=== PATIENT | male | born 1975 ===

== ENCOUNTER 2019-03-16 07:31 | Day surgery (SDC) | payer OTHER ==
[2019-03-16] VITALS (8 sets, daily range): BP systolic 109–127; BP diastolic 66–77
[~2019-03-16] VITALS: Ht 165.1 cm; Wt 115.2 kg
[~2019-03-16 07:31] MED LIST: IBUP-1984 PO; ceFAZolin 2gm in dextrose, iso 100 ML IV ONE; famotidine 20mg tablet PO ONE; ringers solution, lacted 1,000 ML IV SCH
[2019-03-16 08:31] LABS: BASOPHILS # (AUTO) 0.1 X10'3 (0-0.2); BASOPHILS % (AUTO) 0.9 % (0-1); EOSINOPHILS # (AUTO) 0.1 X10'3 (0-0.9); EOSINOPHILS % (AUTO) 1.8 % (0-6); LYMPHOCYTES # (AUTO) 2.3 X10'3 (1.1-4.8); LYMPHOCYTES % (AUTO) 38.9 % (21-51); MEAN CORPUSCULAR HEMOGLOBIN 30.9 PG (27.0-31.0); MEAN CORPUSCULAR HGB CONC 34.3 g/dL (33.0-36.5); MEAN CORPUSCULAR VOLUME 90.3 FL (78-98); MEAN PLATELET VOLUME 8.5 FL (7.4-10.4); MONOCYTES # (AUTO) 0.4 X10'3 (0-0.9); NEUTROPHILS # (AUTO) 3.1 X10'3 (1.8-7.7); NEUTROPHILS % (AUTO) 51.4 % (42-75); PRE OP HEMATOCRIT 47.6 % (42.0-52.0); PRE OP HEMOGLOBIN 16.3 g/dL (14.0-17.9); PRE OP PLATELET COUNT 219 X10'3 (140-440); RED BLOOD COUNT 5.28 X10'6 (4.70-6.10)
[2019-03-16] MEDS ORDERED: ROPIVAcaine 0.5% (5mg/ml) 30ml vial ONE (08:50)
[2019-03-16] MEDS ORDERED: dexamethasone sod phosphate 10mg/ml inj ONE (10:47)
[2019-03-16] MEDS ORDERED: sevoflurane 250ml liquid IH ONE (10:47)
[2019-03-16] MEDS ORDERED: LIDOcaine 1%/PF 5ML 10 MG/ML VIAL ONE (10:47)
[2019-03-16] MEDS ORDERED: BUPIVAcaine/PF 2.5 mg/ml (0.25%) 30ml vial ONE (10:48)
[2019-03-16] MEDS ORDERED: ceFAZolin 1000mg inj ONE (10:48)
[2019-03-16] MEDS ORDERED: propofol inj 20 ML IV ONE (10:49)
[2019-03-16] MEDS ORDERED: midazolam 2 mg/2 ml injection ONE (10:49)
[2019-03-16] MEDS ORDERED: fentaNYL/PF 50MCG/1 ML 2ML syringe ONE ×2 (10:49→11:25)
[2019-03-16] MEDS ORDERED: ondansetron/PF 4mg/2ml inj ONE (11:12)
[2019-03-16] MEDS ORDERED: ringers solution, lacted 1,000 ML IV SCH (11:31)
[2019-03-16] MEDS ORDERED: ketorolac trometh. 30mg/ml inj. ONE (11:33)
[2019-03-16] MEDS ORDERED: ondansetron/PF 4mg/2ml inj IV PRN (11:35)
[2019-03-16] MEDS ORDERED: meperidine/PF 25mg/ml syringe IV PRN ×2 (11:35)
[2019-03-16] MEDS ORDERED: labetalol 20mg/4ml (5mg/ml) syringe IV PRN (11:35)
[2019-03-16] MEDS ORDERED: morphine 4 MG/ML inj SYRINge IV PRN ×2 (11:35)
[2019-03-16] MEDS ORDERED: hydrALAZINE 20mg/ml inj. IV PRN (11:35)
--- NOTE | 2019-03-16 11:50 | NUR ---
Received from OR via BED, accompanied by Anesthesiologist DR EZEQUIEL GUTIERREZ-- and report given by Anesthesiolgist. PATIENTWAKING UP, DENIES PAIN, V/S WNL, NEUROVASCULAR CHECKS INTACT, 20G PIV LUE, SCD ON, DRESSING WITH BRACE LEFT FOOT CDI AND 2 GUARDS AT BED SIDE
--- NOTE | 2019-03-16 12:40 | NUR ---
PATIENTA&OX4, DENIES PAIN, V/S WNL, NEUROVASCULAR CHECKS INTACT, 20G PIV LUE D/C, SCD ON, DRESSING WITH BRACE LEFT FOOT CDI AND 2 GUARDS AT BED SIDE. . I HAVE REVIEWED D/C INSTRUCTIONS WITH PATIENT ANDGUARDS AND THEY HAVE VERBALIZED UNDERSTANDING. PATIENT D/C WITH ALL BELONGINGS AND GUARDS GAVE TRANSPORTBACK TO PRISON.
== END 2019-03-16 12:40 ==
LOC: PAS 07:31 → EEVIPCON 12:45
PROVIDERS: ATTEND Orthopaedic Surgery
DX: S92.355A Nondisplaced fracture of fifth metatarsal bone, left foot, initial encounter for closed fracture (principal); E66.9 Obesity, unspecified; X58.XXXA Exposure to other specified factors, initial encounter; Y93.89 Activity, other specified; Y92.89 Other specified places as the place of occurrence of the external cause; Y99.8 Other external cause status
CPT/HCPCS: 28485; 36415; 82948; 85025; 87070; C1713; J0690; J1100; J1885; J2001; J2250; J2405; J2704; J3010; J3490; A6449; A7000; J2795; J7120